=== PATIENT | male | born 1995 | race Hispanic/Latino ===

== ENCOUNTER 2023-03-02 00:02 | Emergency (ER) | payer BC ==
[~2023-03-02] VITALS: Ht 167.6 cm; Wt 81.7 kg
[2023-03-02 03:19] VITALS: BP 145/101
== END 2023-03-02 03:20 | disposition home or self-care (01) ==
LOC: ED 00:02
DX: S46.912A Strain of unspecified muscle, fascia and tendon at shoulder and upper arm level, left arm, initial encounter (principal); W19.XXXA Unspecified fall, initial encounter
CPT/HCPCS: 73030; A9270